=== PATIENT | female | born 1945 | race Caucasian/White ===

== ENCOUNTER 2016-06-11 10:56 | Outpatient (CLI) | payer MEDICARE, BC | END 2016-06-11 10:57 | LOC: POD 10:56 | PROVIDERS: ATTEND Podiatrist Public Medicine | DX: E11.9 Type 2 diabetes mellitus without complications (principal); B35.1 Tinea unguium; L60.0 Ingrowing nail; M79.674 Pain in right toe(s); M79.675 Pain in left toe(s) | CPT/HCPCS: 11721; G0463 ==

== ENCOUNTER 2016-09-24 08:31 | Outpatient (CLI) | payer MEDICARE, BC | END 2016-09-24 08:32 | LOC: POD 08:31 | PROVIDERS: ATTEND Podiatrist Public Medicine | DX: E11.9 Type 2 diabetes mellitus without complications (principal); B35.1 Tinea unguium; L60.0 Ingrowing nail; M79.674 Pain in right toe(s); M79.675 Pain in left toe(s) | CPT/HCPCS: 11721; G0463 ==

== ENCOUNTER 2016-12-24 08:16 | Outpatient (CLI) | payer MEDICARE, BC | END 2016-12-24 08:17 | LOC: POD 08:16 | PROVIDERS: ATTEND Podiatrist Public Medicine | DX: E11.9 Type 2 diabetes mellitus without complications (principal); B35.1 Tinea unguium; L60.0 Ingrowing nail; M79.674 Pain in right toe(s); M79.675 Pain in left toe(s) | CPT/HCPCS: 11721; G0463 ==

== ENCOUNTER 2017-03-25 08:12 | Outpatient (CLI) | payer MEDICARE, BC | END 2017-03-25 08:13 | LOC: POD 08:12 | PROVIDERS: ATTEND Podiatrist Public Medicine | DX: E11.9 Type 2 diabetes mellitus without complications (principal); B35.1 Tinea unguium; L60.0 Ingrowing nail; M79.674 Pain in right toe(s); M79.675 Pain in left toe(s) | CPT/HCPCS: 11721; G0463 ==

== ENCOUNTER 2017-07-01 08:29 | Outpatient (CLI) | payer MEDICARE, BC | END 2017-07-01 08:30 | LOC: POD 08:29 | PROVIDERS: ATTEND Podiatrist Public Medicine | DX: E11.9 Type 2 diabetes mellitus without complications (principal); B35.1 Tinea unguium; L60.0 Ingrowing nail; M79.674 Pain in right toe(s); M79.675 Pain in left toe(s) | CPT/HCPCS: 11721; G0463 ==

== ENCOUNTER 2017-09-30 08:32 | Outpatient (CLI) | payer MEDICARE, BC | END 2017-09-30 08:33 | LOC: POD 08:32 | PROVIDERS: ATTEND Podiatrist Public Medicine | DX: E11.9 Type 2 diabetes mellitus without complications (principal); B35.1 Tinea unguium; L60.0 Ingrowing nail; M79.674 Pain in right toe(s); M79.675 Pain in left toe(s) | CPT/HCPCS: 11721; G0463 ==